=== PATIENT | male | born 1970 | race Caucasian/White ===

== ENCOUNTER 2018-10-14 15:40 | Emergency (ER) | payer SELFPAY ==
[2018-10-14] MEDS ORDERED: IBUPROFEN 400 MG TAB ONE (16:10)
[2018-10-14 16:22] LABS: Absolute Lymphocytes (CBC) 0.7 K/uL (0.7-4.9); Basophils % 0.6 % (0-1.3); Eosinophils % 2.8 % (0-4.4); Hematocrit 43.1 % (39.6-49.0); MPV 10.6 fL (7.6-11.3); RBC Red Blood Cell Count 4.58 M/uL (4.33-5.43)
[2018-10-14] MEDS ORDERED: NA CHLORIDE 0.9% 1,000 ML ONE ×3 (16:36→20:08)
[2018-10-14 16:37] LABS: Potassium 3.7 mmol/L (3.5-5.1)
--- NOTE | 2018-10-14 17:03 | RAD REPORT ---
EXAM DESCRIPTION: CT - Stone Protocol - 10/14/2018 4:52 pm CLINICAL HISTORY: Bilateral flank pain, bilateral groin pain COMPARISON: None. TECHNIQUE: Axial 5 mm thick images were obtained without oral or IV contrast. The [id number] span s the entirety of the system partially obscuring uppermost abdomen and lung bases. All CT scans are performed using dose optimization technique as appropriate and may include automated exposure control or mA/KV adjustment according to patient size. FINDINGS: Moderate severity hydronephrosis of the left side pelvis and calices noted secondary to a 14 x 8 mm left UPJ calculus. Distal to the calculus the left ureter is decompressed. No additional le ft-sided calculi seen. Patient has several punctate 1 mm or less nonobstructing calyx calculi in the right kidney. No right-sided hydronephrosis or obstructing calculus. No perinephric stranding. No suzan picious renal masses. Isodense masses and pyelonephritis are not excluded on a stone protocol CT scan . No urinary bladder suspicious finding. No significant adrenal finding. Imaged portions of the liver, spleen and pancreas show no suspicious findings on non-contrast imaging . No gallbladder or biliary tree abnormality identified. No suspicious bowel findings. [place] artifact is present from 2 punctate metallic densities near the a ntrum of the stomach. This may be from prior injury or prior gastric procedure. An acute component is not suspected. No hernia, mass or bulky lymphadenopathy noted. No free air, free fluid or inflammatory stranding. No significant bony abnormality. IMPRESSION: Moderate severity left-sided hydronephrosis of the pelvis and calices secondary to a 14 x 8 mm left UPJ calculus. On a KUB projection the stone is along the superior margin of the L2 left transverse process. Punctate 1 mm or less calyx calculi of the right kidney. No right-sided hydronephrosis or obstructing calculus. Isodense masses and pyelonephritis are not excluded on stone protocol technique.
[2018-10-14] MEDS ORDERED: KETOROLAC 30 MG/ML INJ ONE (17:31)
--- NOTE | 2018-10-14 20:49 | RAD REPORT ---
EXAM DESCRIPTION: RAD - Abdomen 1 View (KUB) - 10/14/2018 8:08 pm CLINICAL HISTORY: Left-sided kidney stone, stone localization COMPARISON: CT study same date FINDINGS: Air and stool are present throughout nondilated colon. Air is present in multiple nondilat ed small bowel loops. No obstruction, free air or pneumatosis. A large obstructing UPJ calculus is identified just lateral to the L3 left transverse process. IMPRESSION: Obstructing calculus is lateral to the L3 left transverse process.
[2018-10-14 21:12] LABS: Protime INR 0.89
[2018-10-14 21:19] LABS: Barbiturates NEGATIVE (NEGATIVE); Benzodiazepines NEGATIVE (NEGATIVE); Cocaine NEGATIVE (NEGATIVE); METHAMPHETAM NEGATIVE (NEGATIVE); Methadone NEGATIVE (NEGATIVE); Opiates NEGATIVE (NEGATIVE); Phencyclidine NEGATIVE (NEGATIVE); THC Cannibis NEGATIVE (NEGATIVE)
[2018-10-14 21:22] LABS: Urine Blood 1+ (NEG); Urine Glucose NEGATIVE (NEG); Urine Protein 1+ (NEG); Urine Specific Gravity 1.025 (1.005-1.030)
[2018-10-14 21:25] LABS: Urine Bacteria 20-50 /HPF (NONE SEEN); Urine Culture Reflex Order REFLEXED
[2018-10-14 21:26] LABS: Urine Mucus 2+ /HPF (NONE SEEN)
[2018-10-14 21:28] LABS: ALT/SGPT 66 U/L (12-78); AST/SGOT 65 U/L (15-37); Albumin 3.2 g/dL (3.4-5.0); Alkaline Phosphatase 57 U/L (45-117); Bilirubin Direct 0.1 mg/dL (0-0.2); Bilirubin Total 0.4 mg/dL (0.2-1.0); Protein, Total 6.2 g/dL (6.4-8.2)
[2018-10-14] MEDS ORDERED: CEFTRIAXONE/SWI 1gm 0 GM/0 ML SYR ONE (23:09)
[2018-10-14] MEDS ORDERED: CIPROFLOXACIN HCL 500 MG TAB ONE (23:44)
--- NOTE | 2018-10-15 03:24 | ER ---
Nurse's Notes [facility] Name: Jackie Friend Age: 48 yrs Sex: Male : 1970 Arrival Date: 10/14/2018 Time: 15:43 Bed 17 Private MD: Diagnosis: Calculus of kidney and ureter-left;Schizophrenia, unspecified Presentation: 10/14 15:44 Presenting complaint: EMS states: pt has chronic kidney pain. C/O of flank pain on both ca1 sides and genital pain that started an hour ago. He is A\\T\\Ox4. Transition of care: patient was not received from another setting of care. Onset of symptoms was October 14, 2018. Risk Assessment: Do you want to hurt yourself or someone else? Patient reports no desire to harm self or others. Initial Sepsis Screen: Does the patient meet any 2 criteria? No. Patient's initial sepsis screen is negative. Does the patient have a suspected source of infection? No. Patient's initial sepsis screen is negative. Care prior to arrival: None. 15:44 Method Of Arrival: EMS: [facility] ca1 15:44 Acuity: WIL 3 ca1 20:28 Acuity: WIL 2 dm5 Triage Assessment: 15:48 General: Appears in no apparent distress. comfortable, Behavior is calm, cooperative, ca1 appropriate for age. Pain: Complains of pain in low back area, left low back and right low back Pain does not radiate. Pain currently is 10 out of 10 on a pain scale. Pain began 1 hour ago. GI: Abdomen is flat, non-distended, Bowel sounds present X 4 quads. Abd is soft and non tender X 4 quads. Historical: - Allergies: 15:48 [place]; ca1 15:48 Thorazine; ca1 - Home Meds: 15:48 Zyprexa Oral [Active]; ca1 - PMHx: 15:48 Schizophrenia; ca1 - PSHx: 15:48 None; ca1 - Immunization history:: Adult Immunizations not up to date. - Social history:: Smoking status: Patient uses tobacco products, smokes one pack cigarettes per day. cigars. - Ebola Screening: : Patient negative for fever greater than or equal to 101.5 degrees Fahrenheit, and additional compatible Ebola Virus Disease symptoms Patient denies exposure to infectious person Patient denies travel to an Ebola-affected area in the 21 days before illness onset No symptoms or risks identified at this time. Screenin:50 Abuse screen: Denies threats or abuse. Denies injuries from another. Nutritional ca1 screening: No deficits noted. Tuberculosis screening: No symptoms or risk factors identified. Fall Risk IV access (20 points). Assessment: 15:50 General: Appears in no apparent distress. comfortable, Behavior is calm, cooperative, ca1 appropriate for age. Pain: Complains of pain in low back area Pain does not radiate. Pain currently is 10 out of 10 on a pain scale. Pain began 1 hour ago. Neuro: Level of Consciousness is awake, alert, obeys commands, Oriented to person, place, time, situation. Cardiovascular: Heart tones S1 S2 present Capillary refill < 3 seconds Patient's skin is warm and dry. Respiratory: Airway is patent Respiratory effort is even, unlabored, Respiratory pattern is regular, symmetrical, Breath sounds are clear bilaterally. GI: Abdomen is flat, non-distended, Bowel sounds present X 4 quads. Abd is soft and non tender X 4 quads. : No deficits noted. No signs and/or symptoms were reported regarding the genitourinary system. EENT: No deficits noted. No signs and/or symptoms were reported regarding the EENT system. Derm: Skin is intact, is healthy with good turgor, Skin is pink, warm \\T\\ dry. Musculoskeletal: Circulation, motion, and sensation intact. Capillary refill < 3 seconds, Range of motion: intact in all extremities. 16:49 Reassessment: Patient appears in no apparent distress at this time. Patient and/or ca1 family updated on plan of care and expected duration. Pain level reassessed. Patient is alert, oriented x 3, equal unlabored respirations, skin warm/dry/pink. Pt attempted to urinate but was unable to. He says to wait. 17:56 Reassessment: Patient appears in no apparent distress at this time. Patient and/or ca1 family updated on plan of care and expected duration. Pain level reassessed. Patient is alert, oriented x 3, equal unlabored respirations, skin warm/dry/pink. Pt says he doesn't feel like he needs to pee at this time. Notified provider. 18:46 Reassessment: Patient appears in no apparent distress at this time. Patient and/or ca1 family updated on plan of care and expected duration. Pain level reassessed. Patient is alert, oriented x 3, equal unlabored respirations, skin warm/dry/pink. Encouraged pt to urinate again. Pt attempted but reported to have not succeeded. Pt refuses straight cath. 19:19 Reassessment: Patient appears in no apparent distress at this time. Patient and/or ca1 family updated on plan of care and expected duration. Pain level reassessed. Patient is alert, oriented x 3, equal unlabored respirations, skin warm/dry/pink. 20:30 Reassessment: Patient appears in no apparent distress at this time. Patient and/or ca1 family updated on plan of care and expected duration. Pain level reassessed. Patient is alert, oriented x 3, equal unlabored respirations, skin warm/dry/pink. Now pt seems agitated and states, " I am suicidal and Homicidal. I am a threat to myself and others. The FBI is after me and I plan to buy some guns and kill them all". 20:30 Reassessment: EMS has brought in a bike wrapped in cloth owned by the pt. Placed ca1 outside of room now, at the nurse's station. 22:01 Reassessment: Spoke with Eddy at [facility] to request screening exam, eddy states la1 he will get in contact with the screener at get back with us. 22:20 Reassessment: No changes from previously documented assessment. Patient and/or family cr4 updated on plan of care and expected duration. Pain level reassessed. Patient is alert, oriented x 3, equal unlabored respirations, skin warm/dry/pink. patient changed rooms, with eyes closed breathing regular.. 23:20 Reassessment: No changes from previously documented assessment. Patient and/or family cr4 updated on plan of care and expected duration. Pain level reassessed. Patient is alert, oriented x 3, equal unlabored respirations, skin warm/dry/pink. 10/15 01:00 Reassessment: patient given sandwich and chips as requested. patient with eyes closed cr4 breathing regular.. 02:00 Reassessment: No changes from previously documented assessment. cr4 03:47 Reassessment: No changes from previously documented assessment. patient with eyes cr4 closed breathing regular. 04:15 Reassessment: Patient appears in no apparent distress at this time. Patient sleeping cc3 kept undisturbed, sitter present. 05:20 Reassessment: Patient appears in no apparent distress at this time. Patient still cc3 comfortably sleeping, kept undisturbed. 06:13 Reassessment: Patient appears in no apparent distress at this time. Patient sleeping, cc3 kept undisturbed. Sitter present. 07:00 General: Appears in no apparent distress. comfortable, Behavior is calm, cooperative. rb1 Pain: Complains of pain in low back area Pain currently is 4 out of 10 on a pain scale. Neuro: Level of Consciousness is awake, alert, obeys commands, Oriented to person, place, time, situation. Cardiovascular: Capillary refill < 3 seconds is brisk in bilateral fingers. Respiratory: Airway is patent Respiratory effort is even, unlabored, Respiratory pattern is regular, symmetrical. GI: No signs and/or symptoms were reported involving the gastrointestinal system. : No signs and/or symptoms were reported regarding the genitourinary system. Derm: Skin is pink, warm \\T\\ dry. 08:55 Reassessment: Pt noted to be getting dressed, pt states "I just need to walk around for aa5 a little bit because my tailbone is broken". Pt states "the government has satellites and they can decide where they give you pain like your heart, your bones, and right now they are on my tailbone". Pt requesting for pain medication at this time, was notified. Notified pt that he needs to be wearing a gown and that belongings will be taken away, pt agrees. Pt is cooperative. . 09:06 Reassessment: Patient appears in no apparent distress at this time. Patient and/or tr5 family updated on plan of care and expected duration. Pain level reassessed. Patient is alert, oriented x 3, equal unlabored respirations, skin warm/dry/pink. 09:15 Reassessment: Pt placed in gown. Pt's belongings given to security and witnessed by aaAndrei Christy RN. (see Personal Valuables Checklist: socks, belt, shirt, shoes, shorts, and 2 bottles of ibuprofen) . 09:15 Reassessment: Witnessed belongings given to security. . tr5 10:50 Reassessment: Patient appears in no apparent distress at this time. Patient and/or tr5 family updated on plan of care and expected duration. Pain level reassessed. Patient is alert, oriented x 3, equal unlabored respirations, skin warm/dry/pink. 12:33 Reassessment: Patient appears in no apparent distress at this time. Patient and/or tr5 family updated on plan of care and expected duration. Pain level reassessed. Patient is alert, oriented x 3, equal unlabored respirations, skin warm/dry/pink. 14:30 Reassessment: Pt pacing in room, pt states "I am no longer suicidal or homicidal, I aa5 just want to go home". Pt requesting to speak to Dr. Murillo. Dr. Murillo notified. . 14:45 Reassessment: Dr. Murillo at bedside speaking to patient. . aa5 16:19 Reassessment: [facility] hourly associate speaking to patient at this time. . aa5 Psych: 10/14 20:30 Subjective: Patient's mood is irritable, Delusions are persecutory, Hallucinations are ca1 denied Having thoughts of homicide. Subjective: Having thoughts of homicide. Homicidal plan is to buy guns and kill the FBI who are following him and doing some tests on him. Homicidal thoughts directed towards "FBI agents". He refuses to name names. Objective: Patient is uncooperative, irritable, suspicious, Speech is normal, Affect is appropriate, Patient has mutilated themselves by cutting his arms which he states was done by FBI agents who do some tests on him. Interventions: Removed personal items and placed in bag. Patient placed in hospital gown. Searched person for dangerous items. Urine collected and sent for urine drug test. Belonging list filled out. Patient reassessed during use of restraints. Patient is physically safe. Patient's cardiac status is stable. Patient's respirations are even and unlabored. Patient has good circulation in all extremities as indicated by capillary refill < 3 seconds. Patient's ROM assessed and is intact. Patient nutrition and hydration needs will continue to be monitored and addressed. Patient hygiene and elimination needs met. Patient assessed for signs of distress. Patient remains reasonably comfortable at this time. Assisted patient in de-escalation of behavior by removing stimuli causing behavior where possible. Suicide Risk Assessment: Sad Person Scale: Sex of patient: Male: Score 1 point. Age of patient: Score 0 point if patient falls outside of specified age parameters. Depression: Score 0 point if signs of depression are not present. Previous Attempt: Score 1 point if patient has previously attempted suicide. Substance Abuse: Score 0 point if patient does not abuse alcohol or drugs. Rational Thinking: Score 1 point if patient is lacking rational thinking. Social Support: Score 1 point if social support is lacking and/or unavailable. Organized Plan: Score 1 point if patient had a plan in place. Relationship: Score 1 point if patient is , , , or for a single male Chronic Sickness: Score 0 point if patient does not have a chronic illness, debilitating, or severe disorder. TOTAL POINTS: If total points are 5-6, proposed clinical action is to strongly consider hospitalization, depending upon confidence in the follow-up arrangement. Implement suicide precautions. Safety Checks: Personal items have been removed. Door is open. No visitors are present at this time. Pt denies substance abuse. 10/15 17:14 Commitment: Patient will be a voluntary commitment. la1 Vital Signs: 10/14 15:44 BP 143 / 84; Pulse 65; Resp 16; Temp 98.4(O); Pulse Ox 97% on R/A; lt1 15:48 Weight 104.33 kg (R); Height 6 ft. (182.88 cm) (R); Pain 10/10; ca1 16:54 BP 138 / 82; Pulse 68; Resp 17 S; Pulse Ox 98% on R/A; ca1 17:56 BP 141 / 81; Pulse 65; Resp 16 S; Temp 98(A); Pulse Ox 97% on R/A; ca1 18:46 BP 140 / 82; Pulse 65; Resp 16 S; Pulse Ox 98% on R/A; ca1 19:36 BP 139 / 86; Pulse 69; Resp 17 S; Pulse Ox 98% on R/A; ca1 20:34 BP 135 / 81; Pulse 66; Resp 16 S; Pulse Ox 98% on R/A; ca1 21:37 BP 142 / 83; Pulse 68; Resp 16 S; Pulse Ox 97% on R/A; ca1 10/15 00:54 BP 134 / 77; Pulse 78; Resp 16; Temp 98.3(O); Pulse Ox 99% on R/A; Pain 10/10; eb1 05:36 BP 148 / 83; Pulse 52; Resp 16; Temp 98.4(O); Pulse Ox 98% on R/A; Pain 8/10; eb1 09:30 BP 136 / 63; Pulse 60; Resp 18; Temp 98; Pulse Ox 97% on R/A; kp2 13:12 BP 121 / 65; Pulse 50 AP; Resp 16; Temp 98; Pulse Ox 97% on R/A; kp2 16:40 BP 138 / 63; Pulse 60; Resp 18; Temp 98.7; Pulse Ox 99% on R/A; kp2 07 15:48 Body Mass Index 31.19 (104.33 kg, 182.88 cm) ca1 ED Course: 10/14 10:05 Patient taken to treatment room. eb1 15:43 Patient arrived in ED. ca1 15:44 Preston Whitmore PA is PHCP. cp 15:44 Ruddy Murillo MD is Attending Physician. cp 15:45 Triage completed. ca1 15:48 Arm band placed on right wrist. ca1 15:50 Tiera Bryant RN is Primary Nurse. ca1 15:50 Patient has correct armband on for positive identification. Placed in gown. Bed in low ca1 position. Call light in reach. Side rails up X 1. Pulse ox on. NIBP on. Warm blanket given. 16:07 Initial lab(s) drawn, by me, sent to lab. Inserted saline lock: 20 gauge in right lt1 antecubital area, using aseptic technique. 16:[address] via wheelchair. ca1 16:52 CT Stone Protocol In Process Unspecified. EDMS 20:05 XRAY KUB In Process Unspecified. EDMS 20:54 Missed attempt(s): 20 gauge in right antecubital area. lt1 20:54 Initial lab(s) drawn, by me, sent to lab. lt1 21:17 No apparent distress. No apparent distress. Resting quietly. Safety Checks: Personal eb1 items have been removed. The door is open or patient has been placed in a hallway bed/chair. There are no family/friend visitors at this time Sitter present at this time. 21:30 Report given to WENDI Mejia. ca1 21:31 No apparent distress. Resting quietly. Safety Checks: Personal items have been removed. eb1 The door is open or patient has been placed in a hallway bed/chair. There are no family/friend visitors at this time Sitter present at this time. 21:45 No apparent distress. Resting quietly. Safety Checks: Personal items have been removed. eb1 The door is open or patient has been placed in a hallway bed/chair. There are no family/friend visitors at this time Sitter present at this time. 22:01 No apparent distress. Resting quietly. Safety Checks: Personal items have been removed. eb1 The door is open or patient has been placed in a hallway bed/chair. There are no family/friend visitors at this time Sitter present at this time. 22:07 Screener from [facility] called to say that they received the message and would be here dm5 in about an hour. 22:15 No apparent distress. Resting quietly. Safety Checks: Personal items have been removed. eb1 The door is open or patient has been placed in a hallway bed/chair. There are no family/friend visitors at this time Sitter present at this time. 22:30 No apparent distress. Resting quietly. Safety Checks: Personal items have been removed. eb1 The door is open or patient has been placed in a hallway bed/chair. There are no family/friend visitors at this time Sitter present at this time. 22:48 No apparent distress. Resting quietly. Safety Checks: Personal items have been removed. eb1 The door is open or patient has been placed in a hallway bed/chair. There are no family/friend visitors at this time Sitter present at this time. 23:00 No apparent distress. Resting quietly. Safety Checks: Personal items have been removed. eb1 The door is open or patient has been placed in a hallway bed/chair. There are no family/friend visitors at this time Sitter present at this time. Safety Checks: Personal items have been removed. The door is open or patient has been placed in a hallway bed/chair. There are no family/friend visitors at this time Sitter present at this time. 23:14 No apparent distress. Resting quietly. Safety Checks: Personal items have been removed. eb1 The door is open or patient has been placed in a hallway bed/chair. There are no family/friend visitors at this time Sitter present at this time. 23:20 Notified Nurse Practitioner and/or Physician [employer]elry B[employer] Maker of had notified patient refused cr4 IV Rocephin, Preston in to speak to patient. patient then refused IV insertion. Antibiotic changed to po. 23:30 No apparent distress. Resting quietly. Safety Checks: Personal items have been removed. eb1 The door is open or patient has been placed in a hallway bed/chair. There are no family/friend visitors at this time Sitter present at this time. 23:45 No apparent distress. Safety Checks: Personal items have been removed. The door is open eb1 or patient has been placed in a hallway bed/chair. There are no family/friend visitors at this time Sitter present at this time. 23:53 No apparent distress. [facility] visited for psychiatric evaluation. Safety Checks: eb1 Personal items have been removed. The door is open or patient has been placed in a hallway bed/chair. There are no family/friend visitors at this time Sitter present at this time. 10/15 00:14 No apparent distress. Resting quietly. Safety Checks: Personal items have been removed. eb1 The door is open or patient has been placed in a hallway bed/chair. There are no family/friend visitors at this time Sitter present at this time. 00:30 No apparent distress. Resting quietly. Safety Checks: Personal items have been removed. eb1 The door is open or patient has been placed in a hallway bed/chair. There are no family/friend visitors at this time Sitter present at this time. 00:45 No apparent distress. Resting quietly. Safety Checks: Personal items have been removed. eb1 The door is open or patient has been placed in a hallway bed/chair. There are no family/friend visitors at this time Sitter present at this time. 01:00 No apparent distress. Resting quietly. Safety Checks: Personal items have been removed. eb1 The door is open or patient has been placed in a hallway bed/chair. There are no family/friend visitors at this time Sitter present at this time. 01:14 No apparent distress. Resting quietly. Safety Checks: Personal items have been removed. eb1 The door is open or patient has been placed in a hallway bed/chair. There are no family/friend visitors at this time Sitter present at this time. 01:32 No apparent distress. Resting quietly. Safety Checks: Personal items have been removed. eb1 The door is open or patient has been placed in a hallway bed/chair. There are no family/friend visitors at this time Sitter present at this time. 01:45 No apparent distress. Resting quietly. Safety Checks: Personal items have been removed. eb1 The door is open or patient has been placed in a hallway bed/chair. There are no family/friend visitors at this time Sitter present at this time. 02:05 No apparent distress. Safety Checks: Personal items have been removed. The door is open eb1 or patient has been placed in a hallway bed/chair. There are no family/friend visitors at this time Sitter present at this time. 02:16 No apparent distress. Safety Checks: Personal items have been removed. The door is open eb1 or patient has been placed in a hallway bed/chair. There are no family/friend visitors at this time Sitter present at this time. 02:30 No apparent distress. Resting quietly. Safety Checks: Personal items have been removed. eb1 The door is open or patient has been placed in a hallway bed/chair. There are no family/friend visitors at this time Sitter present at this time. 02:45 No apparent distress. Resting quietly. Safety Checks: Personal items have been removed. eb1 The door is open or patient has been placed in a hallway bed/chair. There are no family/friend visitors at this time Sitter present at this time. 03:15 No apparent distress. Resting quietly. Safety Checks: Personal items have been removed. eb1 The door is open or patient has been placed in a hallway bed/chair. There are no family/friend visitors at this time Sitter present at this time. 03:35 No apparent distress. Resting quietly. Safety Checks: Personal items have been removed. eb1 The door is open or patient has been placed in a hallway bed/chair. There are no family/friend visitors at this time Sitter present at this time. 03:43 No apparent distress. Resting quietly. Safety Checks: Personal items have been removed. eb1 The door is open or patient has been placed in a hallway bed/chair. There are no family/friend visitors at this time Sitter present at this time. 04:03 No apparent distress. Resting quietly. Safety Checks: Personal items have been removed. eb1 The door is open or patient has been placed in a hallway bed/chair. There are no family/friend visitors at this time Sitter present at this time. 04:14 No apparent distress. Resting quietly. Safety Checks: Personal items have been removed. eb1 The door is open or patient has been placed in a hallway bed/chair. There are no family/friend visitors at this time Sitter present at this time. 04:32 No apparent distress. Resting quietly. Safety Checks: Personal items have been removed. eb1 The door is open or patient has been placed in a hallway bed/chair. There are no family/friend visitors at this time Sitter present at this time. 04:45 No apparent distress. Resting quietly. Safety Checks: Personal items have been removed. eb1 The door is open or patient has been placed in a hallway bed/chair. There are no family/friend visitors at this time Sitter present at this time. 05:04 No apparent distress. Resting quietly. Safety Checks: Personal items have been removed. eb1 The door is open or patient has been placed in a hallway bed/chair. There are no family/friend visitors at this time Sitter present at this time. 05:14 No apparent distress. Resting quietly. Safety Checks: Personal items have been removed. eb1 The door is open or patient has been placed in a hallway bed/chair. There are no family/friend visitors at this time Sitter present at this time. 05:29 No apparent distress. Resting quietly. Safety Checks: Personal items have been removed. eb1 The door is open or patient has been placed in a hallway bed/chair. There are no family/friend visitors at this time Sitter present at this time. 05:44 No apparent distress. Resting quietly. Safety Checks: Personal items have been removed. eb1 The door is open or patient has been placed in a hallway bed/chair. There are no family/friend visitors at this time Sitter present at this time. 06:00 No apparent distress. Resting quietly. Safety Checks: Personal items have been removed. eb1 The door is open or patient has been placed in a hallway bed/chair. There are no family/friend visitors at this time Sitter present at this time. 06:13 No apparent distress. Resting quietly. Safety Checks: Personal items have been removed. eb1 The door is open or patient has been placed in a hallway bed/chair. There are no family/friend visitors at this time Sitter present at this time. 06:29 No apparent distress. Resting quietly. Safety Checks: Personal items have been removed. eb1 The door is open or patient has been placed in a hallway bed/chair. There are no family/friend visitors at this time Sitter present at this time. 06:44 No apparent distress. Resting quietly. Safety Checks: Personal items have been removed. eb1 The door is open or patient has been placed in a hallway bed/chair. There are no family/friend visitors at this time Sitter present at this time. 06:57 No apparent distress. Resting quietly. Safety Checks: Personal items have been removed. eb1 The door is open or patient has been placed in a hallway bed/chair. There are no family/friend visitors at this time Sitter present at this time. 07:00 Safety checks: Items removed: yes. Door open/sign placed on door: yes. Family/friend mh5 present: no. Sitter present: Yes. 07:15 Safety checks: Items removed: yes. Door open/sign placed on door: yes. Family/friend mh5 present: no. Sitter present: Yes. 07:30 Safety checks: Items removed: yes. Door open/sign placed on door: yes. Family/friend mh5 present: no. Sitter present: Yes. 07:45 Safety checks: Items removed: yes. Door open/sign placed on door: yes. Family/friend mh5 present: no. Sitter present: Yes. 07:48 Report given to WENDI Juan (WENDI Antoine). rb1 08:00 Safety checks: Items removed: yes. Door open/sign placed on door: yes. Family/friend mh5 present: no. Sitter present: Yes. 08:06 Diet: Patient given a regular meal tray. mh5 08:15 Safety checks: Items removed: yes. Door open/sign placed on door: yes. Family/friend mh5 present: no. Sitter present: Yes. 08:30 Safety checks: Items removed: yes. Door open/sign placed on door: yes. Family/friend mh5 present: no. Sitter present: Yes. 08:45 Safety checks: Items removed: yes. Door open/sign placed on door: yes. Family/friend mh5 present: no. Sitter present: Yes. 09:00 Safety checks: Items removed: yes. Door open/sign placed on door: yes. Family/friend mh5 present: no. Sitter present: Yes. 09:16 Safety Checks: The door is open or patient has been placed in a hallway bed/chair. [facility] There are no family/friend visitors at this time Sitter present at this time. 0918:Received pton bed awake, AO x4,not in pain or in distress. 09:30 Safety Checks: Personal items have been removed. The door is open or patient has been kp2 placed in a hallway bed/chair. Sitter present at this time. Not in distress . 09:35 faxed patient chart to the following facilities in the attempt to transfer : [facility] , [facility], [facility], [facility], [facility], [facility], [facility], [facility], [facility], [facility], [facility], [facility], [facility] , and [facility]. 09:45 Safety Checks: Personal items have been removed. There are no family/friend visitors at [facility] this time Sitter present at this time. pt some delusions, talks to self. 10:00 Safety Checks: Personal items have been removed. There are no family/friend visitors at [facility] this time Sitter present at this time. pt talks to self. 10:15 Safety Checks: Personal items have been removed. The door is open or patient has been kp2 placed in a hallway bed/chair. Sitter present at this time. pt blankly staring at the ceiling. 10:30 Safety Checks: Personal items have been removed. The door is open or patient has been kp2 placed in a hallway bed/chair. There are no family/friend visitors at this time Sitter present at this time. pt talks to self. 10:45 No apparent distress. Safety Checks: Personal items have been removed. The door is open kp2 or patient has been placed in a hallway bed/chair. There are no family/friend visitors at this time Sitter present at this time. pt talks to self. 11:00 No apparent distress. Safety Checks: Personal items have been removed. The door is open kp2 or patient has been placed in a hallway bed/chair. There are no family/friend visitors at this time Sitter present at this time. pt talks to self nonstop. 11:15 No apparent distress. Safety Checks: Personal items have been removed. The door is open kp2 or patient has been placed in a hallway bed/chair. Sitter present at this time. pt talking to self. 11:30 No apparent distress. Resting quietly. Safety Checks: Personal items have been removed. kp2 The door is open or patient has been placed in a hallway bed/chair. There are no family/friend visitors at this time Sitter present at this time. 11:45 No apparent distress. Safety Checks: Personal items have been removed. The door is open kp2 or patient has been placed in a hallway bed/chair. There are no family/friend visitors at this time Sitter present at this time. pt talks to self. 12:01 No apparent distress. Safety Checks: Personal items have been removed. The door is open kp2 or patient has been placed in a hallway bed/chair. There are no family/friend visitors at this time Sitter present at this time. pt having lunch .sharp utensils removed. 12:15 No apparent distress. Safety Checks: Personal items have been removed. The door is open kp2 or patient has been placed in a hallway bed/chair. There are no family/friend visitors at this time Sitter present at this time. pt finished having lunch. room care done. 12:30 No apparent distress. Safety Checks: Personal items have been removed. The door is open kp2 or patient has been placed in a hallway bed/chair. There are no family/friend visitors at this time Sitter present at this time. pt starts talking to self. 12:45 No apparent distress. Safety Checks: Personal items have been removed. The door is open kp2 or patient has been placed in a hallway bed/chair. There are no family/friend visitors at this time Sitter present at this time. pt talking to self. 13:00 No apparent distress. Safety Checks: Personal items have been removed. The door is open kp2 or patient has been placed in a hallway bed/chair. There are no family/friend visitors at this time Sitter present at this time. Vital Signs taken and recorded. [place] of 50 manually counted, informed WENDI Antoine. 13:15 No apparent distress. Safety Checks: Personal items have been removed. The door is open kp2 or patient has been placed in a hallway bed/chair. Sitter present at this time. pt talking to self. 13:30 No apparent distress. Safety Checks: Personal items have been removed. The door is open kp2 or patient has been placed in a hallway bed/chair. There are no family/friend visitors at this time Sitter present at this time. pt talking to himself. 13:36 Carlee from [facility] called to decline patient in transfer. They do not have beds at [facility] this time. 13:45 Safety checks: Items removed: yes. Door open/sign placed on door: yes. Family/friend mh5 present: no. Sitter present: Yes. 14:15 No apparent distress. Safety Checks: Personal items have been removed. The door is open kp2 or patient has been placed in a hallway bed/chair. There are no family/friend visitors at this time Sitter present at this time. pt walking around the room. 14:30 No apparent distress. Safety Checks: Personal items have been removed. The door is open kp2 or patient has been placed in a hallway bed/chair. There are no family/friend visitors at this time Sitter present at this time. pt walking around the room. 14:45 No apparent distress. Safety Checks: Personal items have been removed. The door is open kp2 or patient has been placed in a hallway bed/chair. There are no family/friend visitors at this time Sitter present at this time. pt on bed,talking to self. 15:00 No apparent distress. Safety Checks: Personal items have been removed. The door is open kp2 or patient has been placed in a hallway bed/chair. There are no family/friend visitors at this time Sitter present at this time. Pt talked to Dr Murillo. Dr Murillo explained to the pt that he must be assessed by a Mental Health Personnel. Pt agreed. 15:15 No apparent distress. Safety Checks: Personal items have been removed. The door is open kp2 or patient has been placed in a hallway bed/chair. There are no family/friend visitors at this time Sitter present at this time. pt talking to self. 15:30 No apparent distress. Safety Checks: Personal items have been removed. The door is open kp2 or patient has been placed in a hallway bed/chair. Sitter present at this time. 15:45 No apparent distress. Safety Checks: Personal items have been removed. The door is open kp2 or patient has been placed in a hallway bed/chair. There are no family/friend visitors at this time Sitter present at this time. pt on bed talking to self cussing alot. 16:00 No apparent distress. Safety Checks: Personal items have been removed. The door is open kp2 or patient has been placed in a hallway bed/chair. There are no family/friend visitors at this time Sitter present at this time. pt on bed talking to self. 16:15 No apparent distress. Safety Checks: Personal items have been removed. The door is open kp2 or patient has been placed in a hallway bed/chair. There are no family/friend visitors at this time Sitter present at this time. pt now being assessed by Mental health Personnel. 16:30 No apparent distress. Safety Checks: Personal items have been removed. The door is open kp2 or patient has been placed in a hallway bed/chair. There are no family/friend visitors at this time Sitter present at this time. Mental Health Personnel Finished talking to pt. 16:41 Sandrita Chamorro MD is Referral Physician. cp 16:45 No apparent distress. Patient requests food. Safety Checks: Personal items have been kp2 removed. The door is open or patient has been placed in a hallway bed/chair. There are no family/friend visitors at this time Sitter present at this time. 17:04 Awaiting: Security to bring him his belongings. la1 17:06 No apparent distress. Safety Checks: Personal items have been removed. The door is open kp2 or patient has been placed in a hallway bed/chair. There are no family/friend visitors at this time Sitter present at this time. security brought belongings. pt changing to own clothes. double checked arms, pt has no IV cannula. 17:09 No provider procedures requiring assistance completed. Patient did not have IV access la1 during this emergency room visit. Administered Medications: 10/14 16:06 Drug: Ibuprofen 800 mg Route: PO; ca1 16:45 Follow up: Response: No adverse reaction; Pain is decreased ca1 16:23 Drug: NS 0.9% 1000 ml Route: IV; Rate: 1 bolus; Site: right antecubital; ca1 20:30 Follow up: IV Status: Completed infusion ca1 16:57 Drug: NS 0.9% 1000 ml Route: IV; Rate: 1 bolus; Site: right antecubital; ca1 20:30 Follow up: IV Status: Completed infusion ca1 17:27 Drug: TORadol - Ketorolac 15 mg Route: IVP; Site: right antecubital; ca1 19:20 Follow up: Response: No adverse reaction; Pain is decreased ca1 19:58 Drug: NS 0.9% 1000 ml Route: IV; Rate: 1 bolus; Site: right antecubital; ca1 22:56 Not Given (Patient Refused): Rocephin - (cefTRIAXone) 1 grams IVPB once over 30 mins; eb1 (mix in 50 mL NS) 23:29 Drug: Cipro 500 mg Route: PO; cr4 10/15 00:02 Follow up: Response: No adverse reaction cr4 04:04 Follow up: Response: No adverse reaction eb1 09:03 Drug: Motrin 600 mg Route: PO; tr5 10:30 Follow up: Response: No adverse reaction tr5 10:51 Follow up: Response: Pain is decreased tr5 17:03 Drug: Cipro 500 mg Route: PO; la1 Outcome: 03:22 ER care complete, transfer ordered by MD. cp 16:43 Discharge ordered by MD. cp 17:14 Discharged to home ambulatory. la1 17:14 Condition: stable 17:14 Discharge instructions given to patient, Instructed on discharge instructions, follow up and referral plans. medication usage, Demonstrated understanding of instructions, follow-up care, medications. 17:33 Patient left the ED. tr5 Signatures: Dispatcher [employer] EDMS Claire Faulkner RN RN dm5 Jackie Tsai RN RN cr4 Elina Orozco RN RN aa5 Joel Hartman RN RN la1 Preston Whitmore PA PA cp Barber, Rebecca RN RN rb1 Dannielle Ramírez 5 Brianda Waite Peggy Brito RN RN eb1 Autumn Swanson cc3 Prema Ibarra kp2 Tiera Bryant RN RN ca1 Tori, Helen lt1 Drake Christy RN RN tr5 Corrections: (The following items were deleted from the chart) 10/14 16:54 15:50 BP 138 / 82; Pulse 68bpm; Resp 17bpm; Spontaneous; Pulse Ox 98% RA; ca1 ca1 10/15 02:29 02:13 No apparent distress. eb1 eb1 02:30 01:16 No apparent distress. eb1 eb1 02:30 01:16 Safety Checks: Personal items have been removed. The door is open or patient has eb1 been placed in a hallway bed/chair. There are no family/friend visitors at this time Sitter present at this time. eb1 03:49 00:30 Reassessment: patient given sandwich and chips as requested. patient with eyes cr4 closed breathing regular.. cr4 09:43 09:27 Safety Checks: Personal items have been removed. The door is open or patient has kp2 been placed in a hallway bed/chair. Sitter present at this time. Not in distress . kp2 15:20 08:55 Reassessment: Pt noted to be getting dressed, pt states "I just need to walk aa5 around for a little bit because my tailbone is broken". Pt states "the government has satellites and they can decide where they give you pain like your heart, your bones, and right now they are on my tailbone". Pt requesting for pain medication at this time, was notified. Notified pt that he need to be wearing a gown and that belongings will be taken away, pt agrees. Pt is cooperative. . aa5 15:20 14:30 Reassessment: Pt pacing in room, pt states "I am no longer suicidal or aa5 homicidal". Pt requesting to speak to Dr. Murillo. Dr. Murillo notified. . aa5
--- NOTE | 2018-10-15 03:24 | EDPHYS ---
Physician Documentation [facility] Name: Jackie Friend Age: 48 yrs Sex: Male : 1970 Arrival Date: 10/14/2018 Time: 15:43 Bed 17 Private MD: ED Physician Ruddy Murillo HPI: 10/14 15:55 This 48 yrs old Male presents to ER via EMS with complaints of Possible cp Kidney Stone, Suicidal Ideation. 15:55 The patient presents with pain that is acute, with no known mechanism of injury. The cp symptoms are located in the mid back area. Onset: The symptoms/episode began/occurred 1 hour(s) ago. Associated signs and symptoms: Pertinent positives: genital pain, Pertinent negatives: abdominal pain, constipation, fever, headache, incontinence, numbness, urinary retention. Severity of symptoms: in the emergency department the symptoms are unchanged, despite home interventions. The patient has experienced similar episodes in the past, chronically. Historical: - Allergies: 15:48 [place]; ca1 15:48 Thorazine; ca1 - Home Meds: 15:48 Zyprexa Oral [Active]; ca1 - PMHx: 15:48 Schizophrenia; ca1 - PSHx: 15:48 None; ca1 - Immunization history:: Adult Immunizations not up to date. - Social history:: Smoking status: Patient uses tobacco products, smokes one pack cigarettes per day. cigars. - Ebola Screening: : Patient negative for fever greater than or equal to 101.5 degrees Fahrenheit, and additional compatible Ebola Virus Disease symptoms Patient denies exposure to infectious person Patient denies travel to an Ebola-affected area in the 21 days before illness onset No symptoms or risks identified at this time. ROS: 16:00 Constitutional: Negative for body aches, chills, fever, poor PO intake. cp 16:00 Eyes: Negative for injury, pain, redness, and discharge. cp 16:00 ENT: Negative for drainage from ear(s), ear pain, sore throat, difficulty swallowing, difficulty handling secretions. 16:00 Cardiovascular: Negative for chest pain, edema, palpitations. 16:00 Respiratory: Negative for cough, shortness of breath, wheezing. 16:00 Abdomen/GI: Negative for abdominal pain, nausea, vomiting, and diarrhea, anorexia, black/tarry stool, rectal bleeding. 16:00 Back: Positive for pain at rest, pain with movement, of the mid back area, Negative for injury or acute deformity, decreased range of motion. 16:00 : Positive for penile pain, Negative for urinary symptoms, hematuria, bladder incontinence, testicular pain 16:00 Skin: Negative for cellulitis, rash. 16:00 Neuro: Negative for altered mental status, headache, weakness. 16:00 All other systems are negative. Exam: 16:05 Constitutional: The patient appears in no acute distress, alert, awake, cp non-diaphoretic, non-toxic, well developed, well nourished. 16:05 Head/Face: Normocephalic, atraumatic. cp 16:05 Eyes: Periorbital structures: appear normal, Conjunctiva: normal, no exudate, no injection, Sclera: no appreciated abnormality, Lids and lashes: appear normal, bilaterally. 16:05 ENT: External ear(s): are unremarkable, Nose: is normal, Mouth: Lips: moist, Oral mucosa: pink and intact, moist, Posterior pharynx: is normal, airway is patent, no erythema, no exudate. 16:05 Neck: ROM/movement: is normal, is supple, without pain, no range of motions limitations, no nuchal rigidity. 16:05 Chest/axilla: Inspection: normal, Palpation: is normal, no crepitus, no tenderness. 16:05 Cardiovascular: Rate: normal, Rhythm: regular. 16:05 Respiratory: the patient does not display signs of respiratory distress, Respirations: normal, no use of accessory muscles, no retractions, no splinting, no tachypnea, labored breathing, is not present, Breath sounds: are clear throughout, no decreased breath sounds, no stridor, no wheezing. 16:05 Abdomen/GI: Inspection: abdomen appears normal, Palpation: abdomen is soft and non-tender, in all quadrants, voluntary guarding, is not appreciated, involuntary guarding, is not appreciated. 16:05 Back: pain, that is mild, of the mid back area, ROM is normal. 16:05 Neuro: Orientation: to person, place \\T\\ time. Mentation: is normal, Cerebellar function: is grossly normal, Motor: moves all fours, strength is normal, Sensation: is normal. 16:05 Psych: Behavior/mood is cooperative, Affect is calm, Patient has no thoughts/intents to harm self or others. Judgement / Insight is normal. 21:20 ECG was reviewed by the Attending Physician. cp Vital Signs: 15:44 BP 143 / 84; Pulse 65; Resp 16; Temp 98.4(O); Pulse Ox 97% on R/A; lt1 15:48 Weight 104.33 kg (R); Height 6 ft. (182.88 cm) (R); Pain 10/10; ca1 16:54 BP 138 / 82; Pulse 68; Resp 17 S; Pulse Ox 98% on R/A; ca1 17:56 BP 141 / 81; Pulse 65; Resp 16 S; Temp 98(A); Pulse Ox 97% on R/A; ca1 18:46 BP 140 / 82; Pulse 65; Resp 16 S; Pulse Ox 98% on R/A; ca1 19:36 BP 139 / 86; Pulse 69; Resp 17 S; Pulse Ox 98% on R/A; ca1 20:34 BP 135 / 81; Pulse 66; Resp 16 S; Pulse Ox 98% on R/A; ca1 21:37 BP 142 / 83; Pulse 68; Resp 16 S; Pulse Ox 97% on R/A; ca1 / 00:54 BP 134 / 77; Pulse 78; Resp 16; Temp 98.3(O); Pulse Ox 99% on R/A; Pain 10/10; eb1 05:36 BP 148 / 83; Pulse 52; Resp 16; Temp 98.4(O); Pulse Ox 98% on R/A; Pain 8/10; eb1 09:30 BP 136 / 63; Pulse 60; Resp 18; Temp 98; Pulse Ox 97% on R/A; kp2 13:12 BP 121 / 65; Pulse 50 AP; Resp 16; Temp 98; Pulse Ox 97% on R/A; kp2 16:40 BP 138 / 63; Pulse 60; Resp 18; Temp 98.7; Pulse Ox 99% on R/A; kp2 10/14 15:48 Body Mass Index 31.19 (104.33 kg, 182.88 cm) ca1 MDM: 10/14 15:47 Patient medically screened. cp 17:19 Physician consultation: Sandrita Chamorro MD was called at 17:19, was contacted at 17:19, cp regarding patient's condition, and will see patient in office, next week. 20:30 ED course: Patient reports he is visualizing "[place] persons" who are threatening him cp and his plan is to purchase a gun to shoot them and shoot himself. 10/15 16:37 ED course: VSS. Patient reports he is feeling better and no longer suicidal or cp homicidal. Patient denies any visual or auditory hallucinations at this time and headache is resolved. Reevaluation by [facility] is patient is able to be discharged for outpatient f/u. 16:42 Data reviewed: vital signs, nurses notes, lab test result(s), EKG, radiologic studies, cp I have discussed the patient's presentation/case with the attending Emergency Department Physician; and as a result, I will discharge patient. 16:42 Test interpretation: by ED physician or midlevel provider: ECG. Counseling: I had a cp detailed discussion with the patient and/or guardian regarding: the historical points, exam findings, and any diagnostic results supporting the discharge/admit diagnosis, lab results, radiology results, the need for outpatient follow up, for definitive care, a psychiatrist, a urologist, to return to the emergency department if symptoms worsen or persist or if there are any questions or concerns that arise at home. Response to treatment: the patient's symptoms have markedly improved after treatment, VSS. Patient reports pain resolved and denies any current suicidal or homicidal ideations. [facility] reevaluation recommends outpatient treatment. 10/14 15:45 Order name: Urine Microscopic Only; Complete Time: 21:55 10/14 15:46 Order name: BMP; Complete Time: 16:47 10/14 16:47 Interpretation: Normal except: CL 110; GLUC 108; BUN 26; CRE 1.35; GFR 57; CA 10.4. 10/14 15:46 Order name: CBC with Diff; Complete Time: 16:24 10/14 17:08 Interpretation: Normal except: PLT 130; LYM% 15.0. 10/14 15:46 Order name: CK; Complete Time: 16:47 10/14 18:46 Interpretation: Abnormal: CPK 744. 10/14 20:29 Order name: Acetaminophen; Complete Time: 21:55 10/14 20:29 Order name: ETOH Level; Complete Time: 21:55 10/14 20:29 Order name: Hepatic Function; Complete Time: 21:55 cp 10/14 20:29 Order name: PT-INR; Complete Time: 21:55 cp 10/14 20:29 Order name: Ptt, Activated; Complete Time: 21:55 cp 10/14 20:29 Order name: Salicylate; Complete Time: 21:55 cp 10/14 20:29 Order name: Urine Drug Screen; Complete Time: 21:55 cp 10/14 21:19 Order name: Urine Dipstick--Ancillary (enter results); Complete Time: 21:55 mw2 10/14 21:27 Order name: Urine Culture EDMS 10/14 16:25 Order name: CT Stone Protocol; Complete Time: 17:06 cp 10/14 19:45 Order name: XRAY KUB; Complete Time: 21:55 cp 10/14 20:29 Order name: EKG; Complete Time: 20:30 cp 10/15 07:01 Order name: Diet Regular; Complete Time: 07:01 [facility] 10/15 10:30 Order name: Diet Regular; Complete Time: 10:30 tr5 10/15 11:05 Order name: Diet Regular; Complete Time: 11:06 tr5 10/14 15:45 Order name: Urine Dipstick-Ancillary (obtain specimen); Complete Time: 16:58 cp 10/14 15:46 Order name: IV; Complete Time: 16:07 cp 10/14 20:29 Order name: EKG - Nurse/Tech; Complete Time: 21:20 cp 10/14 20:29 Order name: Labs collected and sent; Complete Time: 20:54 cp EC/12 21:20 Rate is 53 beats/min. Rhythm is regular. TX interval is prolonged at 202 msec. QRS cp interval is prolonged at 100 msec. QT interval is normal. Interpreted by me. Reviewed by me. Administered Medications: 16:06 Drug: Ibuprofen 800 mg Route: PO; ca1 16:45 Follow up: Response: No adverse reaction; Pain is decreased ca1 16:23 Drug: NS 0.9% 1000 ml Route: IV; Rate: 1 bolus; Site: right antecubital; ca1 20:30 Follow up: IV Status: Completed infusion ca1 16:57 Drug: NS 0.9% 1000 ml Route: IV; Rate: 1 bolus; Site: right antecubital; ca1 20:30 Follow up: IV Status: Completed infusion ca1 17:27 Drug: TORadol - Ketorolac 15 mg Route: IVP; Site: right antecubital; ca1 19:20 Follow up: Response: No adverse reaction; Pain is decreased ca1 19:58 Drug: NS 0.9% 1000 ml Route: IV; Rate: 1 bolus; Site: right antecubital; ca1 22:56 Not Given (Patient Refused): Rocephin - (cefTRIAXone) 1 grams IVPB once over 30 mins; eb1 (mix in 50 mL NS) 23:29 Drug: Cipro 500 mg Route: PO; cr4 10/15 00:02 Follow up: Response: No adverse reaction cr4 04:04 Follow up: Response: No adverse reaction eb1 09:03 Drug: Motrin 600 mg Route: PO; tr5 10:30 Follow up: Response: No adverse reaction tr5 10:51 Follow up: Response: Pain is decreased tr5 17:03 Drug: Cipro 500 mg Route: PO; la1 Disposition: 18:19 Co-signature as Attending Physician, Ruddy Murillo MD. rn Disposition: 10/15/18 16:43 Discharged to Home. Impression: Calculus of kidney and ureter - left, Schizophrenia, unspecified. - Condition is Stable. - Discharge Instructions: Kidney Stones, Schizophrenia. - Prescriptions for Ibuprofen 800 mg Oral Tablet - take 1 tablet by ORAL route every 8 hours As needed take with food; 30 tablet. Zofran 4 mg Oral Tablet - take 1 tablet by ORAL route every 12 hours As needed; 20 tablet. Cipro 500 mg Oral Tablet - take 1 tablet by ORAL route every 12 hours for 7 days; 14 tablet. - Medication Reconciliation Form, Thank You Letter, Antibiotic Education, Prescription Opioid Use form. - Follow up: Sandrita Chamorro MD; When: 10/17/2018; Reason: left kidney and ureter calculus. Follow up: Private Physician; When: 2 - 3 days; Reason: medication evaluation. - Problem is new. - Symptoms have improved. Signatures: Dispatcher [employer] EDJackie Aguirre, RN RN cr4 Ruddy Murillo MD MD rn Calderon, Audri, RN RN aa5 Joel Hartman RN RN la1 Preston Whitmore PA PA cp Acob, Cheryl RN RN ca1 Drake Christy RN RN tr5 Peggy Brito RN eb1 Corrections: (The following items were deleted from the chart) 10/14 16:27 16:22 Rp Exam Complete+US.RAD.BRZ ordered. EDMN EDMS 16:28 16:22 Abdomen 1 View (KUB)+RAD.RAD.BRZ ordered. EDMN EDMS 16:47 16:47 Normal except: CL 110; GLUC 108; BUN 26; CRE 1.35; GFR 57. cp cp 20:53 20:29 Forrest ordered. cp ca1 10/15 16:40 03:22 10/15/2018 03:22 Transfer ordered to [facility]. Diagnosis is Paranoid cp schizophrenia; Hallucinations, unspecified; Calculus of kidney and ureter - left. Reason for transfer: Higher level of care. Accepting physician is doctor. Condition is Stable. Problem is an acute exacerbation. Symptoms have improved. cp 17:33 16:43 10/15/2018 16:43 Discharged to Home. Impression: Calculus of kidney and ureter - tr5 left; Schizophrenia, unspecified. Condition is Stable. Forms are Medication Reconciliation Form, Thank You Letter, Antibiotic Education, Prescription Opioid Use. Follow up: Sandrita Chamorro; When: 10/17/2018; Reason: left kidney and ureter calculus. Follow up: Private Physician; When: 2 - 3 days; Reason: medication evaluation. Problem is new. Symptoms have improved. 10/16 16:17 10/14 15:45 This 48 yrs old Male presents to ER via EMS with complaints of Possible cp Kidney Stone. cp 10/16 16:17 10/14 15:45 The patient presents with pain that is acute, with no known mechanism of cp injury, cp 10/16 16:10/14 15:45 The symptoms are located in the mid back area, cp cp 10/16 16:17 10/14 15:45 Onset: The symptoms/episode began/occurred 1 hour(s) ago, cp cp 10/16 16:10/15 15:45 The patient has been recently seen at the [facility] cp Emergency Department, for similar complaints CT scan was performed, diagnosed with left side kidney stone, cp 10/16 16:18 10/15 15:45 Associated signs and symptoms: Pertinent positives: nausea, vomiting, cp Pertinent negatives: chest pain, fever, cp 10/16 16:18 10/15 15:45 The patient presents with pain that is acute, cp cp 10/16 16:18 10/15 15:45 The symptoms are located in the left flank, cp cp 10/16 16:18 10/15 15:45 Onset: The symptoms/episode began/occurred 8 day(s) ago, and became worse 1 cp hour(s) ago, cp 10/16 16:18 10/15 15:45 The pain radiates to the abdomen, cp cp 10/16 16:19 10/15 15:45 This 48 yrs old Male presents to ER via EMS with complaints of cp Possible Kidney Stone, Suicidal Ideation. cp
[2018-10-15] MEDS ORDERED: IBUPROFEN 400 MG TAB ONE ×2 (09:17→09:21)
[2018-10-15] MEDS ORDERED: IBUPROFEN 200 MG TAB PO ONE ×2 (09:17→09:21)
--- NOTE | 2018-10-15 09:57 | EKG ---
Test Date: 2018-10-14 Test Time: 21:10:54 Lead Cashier: GEOT MEASUREMENT RESULTS: Intervals: Rate: 53 AL: 202 QRSD: 100 QT: 424 QTc: 397 [place]: P: 71 AL: 202 QRS: 49 T: 38 INTERPRETIVE STATEMENTS: Sinus bradycardia with sinus arrhythmia Otherwise normal ECG No previous ECG available for comparison Electronically Signed On 10-15-18 09:56:34 CDT by Jordy Huertas
[2018-10-15] MEDS ORDERED: CIPROFLOXACIN HCL 500 MG TAB ONE (17:15)
== END 2018-10-15 17:33 | disposition home or self-care (01) ==
LOC: ER 15:40
DX: N20.2 Calculus of kidney with calculus of ureter (principal); R45.851 Suicidal ideations; F20.9 Schizophrenia, unspecified; F17.210 Nicotine dependence, cigarettes, uncomplicated; Z88.8 Allergy status to other drugs, medicaments and biological substances
CPT/HCPCS: 36415; 74018; 74176; 76377; 80048; 80076; 80307; 80320; 80329; 81003; 81015; 82550; 85025; 85610; 85730; 87086; 87088; 93005; 96361; 96374; 99285; J0696; J7030